=== PATIENT | male | born 1960 | race Caucasian/White ===

== ENCOUNTER 2016-11-17 03:42 | Emergency (ER) | payer OTHER ==
[2016-11-17] MEDS ORDERED: DIPHENHYDRAMINE HCL 50 MG/1 ML VIAL ONE (04:26)
[2016-11-17] MEDS ORDERED: METOCLOPRAMIDE HCL 5 MG/ML 2ML VIAL ONE (04:26)
[2016-11-17] MEDS ORDERED: KETOROLAC TROMETHAMINE 60 MG/2 ML VIAL ONE (04:26)
== END 2016-11-17 05:14 | disposition home or self-care (01) ==
LOC: ED 03:42
DX: R51 Headache (principal); I10 Essential (primary) hypertension
CPT/HCPCS: 99282; 96372 ×3; 99283; J1200; J2765; J1885